=== PATIENT | female | born 1980 | race Two or more races ===

== ENCOUNTER 2018-07-12 22:28 | Emergency (ER) | payer SELFPAY ==
[2018-07-12 22:38] VITALS: BP 158/92; O2SAT 97
--- NOTE | 2018-07-12 23:41 | ED PDOC ---
Lower Extremity Pain/Injury Time Seen by Provider: 07/12/18 23:02 Chief Complaint (Nursing): Abnormal Skin Integrity Chief Complaint (Provider): Possible Foreign Body in Foot History Per: Patient History/Exam Limitations: no limitations Onset/Duration Of Symptoms: Hrs (earlier today) Current Symptoms Are (Timing): Still Present Additional Complaint(s): 37 year old female presents to the ED for evaluation s/p stepping on broken glass earlier today with her right bare foot. She states that since the incident, it feels as if a piece of the glass is still lodged into her right heel. Of note, she states she is pre-diabetic, but is on metformin. Tetanus up to date. PMD: none provided Past Medical History Reviewed: Historical Data, Nursing Documentation, Vital Signs Vital Signs: Last Vital Signs Temp 98.6 F 07/12/18 22:35 Pulse 81 07/12/18 22:35 Resp 16 07/12/18 22:35 BP 158/92 H 07/12/18 22:35 Pulse Ox 97 07/12/18 22:35 - Medical History PMH: Diabetes (pre-diabetic (on metformin)) - Surgical History Surgical History: No Surg Hx - Family History Family History: States: Unknown Family Hx - Immunization History Hx Tetanus Toxoid Vaccination: Yes - Home Medications Home Medications: Ambulatory Orders Medication Instructions Recorded RX: Ciprofloxacin [Cipro] 500 mg PO BID #14 tab 07/13/18 - Allergies Allergies/Adverse Reactions: Allergies Allergy/AdvReac Type Severity Reaction Status Date / Time dimethicone [From [facility]] Allergy RASH Verified 07/12/18 22:34 dimethicone crosspolymer Allergy RASH Verified 07/12/18 22:34 [From [facility]] trimethylsiloxysilicate Allergy RASH Verified 07/12/18 22:34 [From [facility]] Review of Systems ROS Statement: Except As Marked, All Systems Reviewed And Found Negative Musculoskeletal: Positive for: Foot Pain (right with possible foreign body inside wound) Physical Exam - Reviewed Nursing Documentation Reviewed: Yes Vital Signs Reviewed: Yes - Physical Exam Appears: Positive for: No Acute Distress Skin: Positive for: Normal Color, Warm Pulses-Dorsalis Pedis (L): 2+ Pulses-Dorsalis Pedis (R): 2+ Extremity: Positive for: Other (right foot: superficial wound with no palpable foreign body, surrounding erythema, or active bleeding) - ECG O2 Sat by Pulse Oximetry: 97 (RA) Pulse Ox Interpretation: Normal - Radiology X-Ray: Interpreted by Me (R foot x-ray) X-Ray Interpretation: Other (7.5mm linear FB) - Progress ED Course And Treament: Pt. evaluated by Dr. Delgado, podiatry resident, who spoke with Dr. Perez who agrees with plan and care. Dr. Delgado removed FB from foot. Medical Decision Making Medical Decision Making: Time: 2308 Initial Impression: possible foreign body in foot Initial Plan: --XR right foot Scribe Attestation: Documented by Ban Flaherty, acting as a scribe for Gabriel Gonzales PA-C. Provider Scribe Attestation: All medical record entries made by the Scribe were at my direction and personally dictated by me. I have reviewed the chart and agree that the record accurately reflects my personal performance of the history, physical exam, medical decision making, and the department course for this patient. I have also personally directed, reviewed, and agree with the discharge instructions and disposition. Disposition - Clinical Impression Clinical Impression: Foreign body (FB) in soft tissue - Patient ED Disposition Is Patient to be Admitted: No - Disposition Referrals: Travon Draper DPM [Staff Provider] - [facility] [Outside] Disposition: Routine/Home Disposition Time: 00:46 Condition: IMPROVED Additional Instructions: FOLLOW UP WITH DR. DRAPER IN 1 WEEK FOR FURTHER EVALUATION RETURN TO ED IMMEDIATELY IF SYMPTOMS WORSEN CATRINA FAN, thank you for letting us take care of you today. Your provider was Alton Luciano MD and you were treated for RT FOOT LACERATION. The emergency medical care you received today was directed at your acute symptoms. If you were prescribed any medication, please fill it and take as directed. It may take several days for your symptoms to resolve. Return to the Emergency Department if your symptoms worsen, do not improve, or if you have any other problems. Please contact your doctor or call one of the physicians/clinics you have been referred to that are listed on the Patient Visit Information form that is included in your discharge packet. Bring any paperwork you were given at discharge with you along with any medications you are taking to your follow up visit. Our treatment cannot replace ongoing medical care by a primary care provider outside of the emergency department. Thank you for allowing the [facility] team to be part of your care today. If you had an X-Ray or CT scan: A Radiologist will review the ED reading if any change in treatment is needed we will contact you. If you had a blood, urine, or wound culture: It will take several days for the results, if any change in treatment is needed we will contact you. If you had an STI test: It will take 48 hours for the results. Please call after 1 week if you have not heard back. Prescriptions: RX: Ciprofloxacin [Cipro] 500 mg PO BID #14 tab Instructions: Foreign Body in Skin (DC) Forms: [employer] (Danish) Print Language: ARABIC
[2018-07-12] MEDS ORDERED: Lidocaine 1% Inj (20ml) IJ ONE (23:55)
--- NOTE | 2018-07-13 00:41 | CP.PCM.CON ---
History of Present Illness - History of Present Illness History of Present Illness: Podiatry Consult Note: Dr. Loredo 37F patient, with PMHx of pre-diabetes, seen and evaluated at bedside for R foot laceration with foreign body. Patient states that she stepped on a broken piece of glass earlier this evening and can still feel a piece of glass in her foot. She notes that she attempted to remove the glass herself with tweezers, however was unsuccessful. Tetanus is up to date. She denies any other pedal complaints at this time. Denies N/F/V/SOB/CP. PMHx: Pre-diabetes SHx: x2 Social: Lives in [place] with her family, denies tobacco use, denies elicit drug use Review of Systems - Review of Systems Review of Systems: As per HPI Past Patient History - Past Social History Smoking Status: Never Smoked - ENDOCRINE/METABOLIC Other/Comment: pre-diabetic - PSYCHIATRIC Hx Substance Use: No - SURGICAL HISTORY Hx Surgeries: Yes Hx Section: Yes - ANESTHESIA Hx Anesthesia: Yes Meds Home Medications: Home Medication List Medication Instructions Recorded Confirmed Type Ciprofloxacin [Cipro] 500 mg PO BID #14 tab 07/13/18 Rx Allergies/Adverse Reactions: Allergies Allergy/AdvReac Type Severity Reaction Status Date / Time dimethicone [From [facility]] Allergy RASH Verified 07/12/18 22:34 dimethicone crosspolymer Allergy RASH Verified 07/12/18 22:34 [From [facility]] trimethylsiloxysilicate Allergy RASH Verified 07/12/18 22:34 [From [facility]] Physical Exam - Constitutional Appears: Well, Non-toxic, No Acute Distress - Head Exam Head Exam: ATRAUMATIC, NORMOCEPHALIC - Extremities Exam Additional comments: Vascular: DP/PT 2/4, CFT < 3 seconds, TG warm to warm, no edema appreciated Ortho: Tenderness upon palpation to laceration site. MMT 5/5 in all compartments, no gross deformities identified Neuro: Gross and protective sensation intact Derm: Small puncture-like laceration noted to R plantar calcaneus measuring approximately .5x.5x.02cm, no drainage, no malodor, no erythema, no purulence no clinical signs of infection appreciated - Neurological Exam Neurological exam: Alert, Oriented x3 - Psychiatric Exam Psychiatric exam: Normal Affect, Normal Mood - Skin Skin Exam: Warm Results - Vital Signs Recent Vital Signs: Last Vital Signs Temp 98.6 F 07/12/18 22:35 Pulse 81 07/12/18 22:35 Resp 16 07/12/18 22:35 BP 158/92 H 07/12/18 22:35 Pulse Ox 97 07/12/18 23:45 Assessment & Plan - Assessment and Plan (Free Text) Assessment: 37F patient, with PMHx of pre-diabetes, seen and evaluated at bedside for R foot laceration with foreign body Plan: Patient seen and evaluated, discussed patient with Dr. Loredo R foot x-rays taken; superficial foreign body appreciated to the R plantar calcaneus Foreign body removed in a sterile manner with forceps and curette Glass measuring approximately 6-7mm obtained from the R plantar foot and area copiously irrigated with saline Local wound care: R foot dressed with DSD, gauze Instructed on how to perform local wound care at home Patient was given a prescription for Cipro and instructed on it's use Patient expressed verbal understanding Patient to follow up with Dr. Loredo in office Thank you for the consult - Date & Time Date: 07/13/18 Time: 00:41
[2018-07-13 01:03] VITALS: PULSE 80; RESP 18; TEMP 98.1
--- NOTE | 2018-07-13 13:16 | RAD ---
Date of service: 07/12/2018 PROCEDURE: Right Foot Radiographs. HISTORY: possible FB COMPARISON: None. FINDINGS: BONES: Normal. No fracture. JOINTS: Normal. SOFT TISSUES: There is linear radiopaque foreign body in the subcutaneous posterior plantar soft tissues. This measures approximately 7 mm in length. No other radiopaque foreign body is identified. OTHER FINDINGS: None. IMPRESSION: 7 mm linear radiopaque foreign body in the subcutaneous posterior plantar soft tissues.
== END 2018-07-13 00:55 | disposition home or self-care (01) ==
LOC: H.ER 22:28
DX: S91.321A Laceration with foreign body, right foot, initial encounter (principal); W25.XXXA Contact with sharp glass, initial encounter; Y92.89 Other specified places as the place of occurrence of the external cause; E11.9 Type 2 diabetes mellitus without complications